=== PATIENT | male | born 1960 | race Caucasian/White ===

== ENCOUNTER → 2023-10-07 23:00 | Outpatient (CLI) | payer BC, SELFPAY ==
[2023-10-07 19:46] LABS: Thyroid Stimulating Hormone 1.32 uIU/mL (0.465-4.68)
== END ==
PROVIDERS: PCP Internal Medicine; Visit Provider Internal Medicine
DX: E78.5 Hyperlipidemia, unspecified (principal); I10 Essential (primary) hypertension
CPT/HCPCS: 84443

== ENCOUNTER 2024-02-02 19:05 | Outpatient (CLI) | payer BC, SELFPAY ==
[2024-02-02 18:20] LABS: Basophils # 0.2 K/mm3 (0-0.2); Basophils % 1.7 % (0.1-2.0); Eosinophils # 0.2 K/mm3 (0.0-0.4); Eosinophils % 2.6 % (0.1-12.0); Hematocrit 47.1 % (42.0-52.0); Hemoglobin 14.7 g/dL (14.1-18.0); Lymphocytes # 2.6 K/mm3 (0.7-4.5); Lymphocytes % 29.3 % (10-50); Mean Corpuscular HGB Conc 31.1 g/dL (31.8-35.4); Mean Corpuscular Hemoglobin 29.7 pg (27.0-31.2); Mean Corpuscular Volume 95.4 fl (80-94); Mean Platelet Volume 10.7 fl (7.4-10.4); Monocytes # 0.6 K/mm3 (0.1-1.0); Monocytes % 6.6 % (1.7-9.3); Neutrophils # 5.3 K/mm3 (1.8-7.8); Neutrophils % 59.9 % (37.0-80.0); Platelet Count 242 K/mm3 (142-424); Red Blood Count 4.94 M/mm3 (4.60-6.20); Red Cell Distribution Width 13.9 % (11.5-17.5); White Blood Count 8.8 K/mm3 (4.8-10.8)
[2024-02-02 18:34] LABS: Alanine Aminotransferase 54 U/L (12-78); Albumin Level 4.3 g/dl (3.5-5.0); Albumin/Globulin Ratio 1.7 (1.1-1.8); Alkaline Phosphatase 101 U/L (38-126); Anion Gap 12.6 mEq/L (5-15); Aspartate Amino Transferase 48 U/L (17-59); Bilirubin,Total 1.7 mg/dl (0.2-1.3); Blood Urea Nitrogen 22 mg/dl (9-20); Calcium 9.3 mg/dl (8.4-10.2); Carbon Dioxide 26 mmol/L (22.0-30.0); Chloride 105 mmol/L (98-107); Chol/HDL Ratio 5.1 (1-3.5); Cholesterol 169 mg/dl (140-200); Estimated Glomerular Filt Rate 52 ml/min (>60); GFR (African American) 62 ML/MIN (>60); Globulin 2.5 g/dL (1.3-3.2); Glucose 103 mg/dl (74-100); HDL Cholesterol 33 mg/dl (40-60); Potassium 4.6 mmoL/L (3.5-5.1); Sodium 139 mmol/L (136-145); Total Protein,Serum 6.8 g/dl (6.3-8.2); Triglycerides 96 mg/dl (30-150); VLDL Cholesterol 19 mg/dL (0-40)
[2024-02-02 18:45] LABS: Direct LDL Cholesterol 109.11 mg/dL (100-129)
[2024-02-02 19:03] LABS: Hemoglobin A1C 5.5 % (4.0-6.0)
[2024-02-02 19:19] LABS: 25-OH Vitamin D, Total 37.8 ng/mL (30-100)
[2024-02-02 19:49] LABS: NT Pro Brain Natriuretic Pep. 3560 pg/mL (0-125)
== END 2024-02-02 23:59 ==
LOC: LAB.DROPOF 19:08
PROVIDERS: PCP Student in an Organized Health Care Education/Training Program; Visit Provider Student in an Organized Health Care Education/Training Program
DX: R60.0 Localized edema (principal); I10 Essential (primary) hypertension; R06.01 Orthopnea; E66.9 Obesity, unspecified; Z68.41 Body mass index [BMI] 40.0-44.9, adult; Z13.1 Encounter for screening for diabetes mellitus; Z83.3 Family history of diabetes mellitus; Z13.21 Encounter for screening for nutritional disorder; Z12.5 Encounter for screening for malignant neoplasm of prostate
CPT/HCPCS: 80053; 80061; 82306; 83036; 83880; 85025; G0103

== ENCOUNTER 2024-02-03 14:41 | Outpatient (CLI) | payer BC, SELFPAY ==
--- NOTE | 2024-02-03 14:51 | XR_ITS ---
FINAL REPORT CLINICAL HISTORY: dyspnea, cough, edema, chest fullness pt just started new blood pressure meds FINDINGS: Two views of the chest were obtained. The heart size and pulmonary vascularity are within normal limits. The mediastinum is normal. No acute pulmonary abnormality is identified. There is no pneumothorax. The bony thorax is intact. IMPRESSION: No active cardiopulmonary disease. Authenticated and ERN
== END 2024-02-03 23:59 ==
LOC: RAD 14:41
PROVIDERS: PCP Internal Medicine; Visit Provider Internal Medicine
DX: R07.89 Other chest pain (principal); R06.00 Dyspnea, unspecified; I10 Essential (primary) hypertension; R05.9 Cough, unspecified; E66.9 Obesity, unspecified; Z68.38 Body mass index [BMI] 38.0-38.9, adult
CPT/HCPCS: 71046

== ENCOUNTER 2024-02-11 10:28 | Outpatient (CLI) | payer BC, SELFPAY ==
[2024-02-11 19:02] LABS: Chol/HDL Ratio 6.8 (1-3.5); Cholesterol 218 mg/dl (140-200); HDL Cholesterol 32 mg/dl (40-60); Triglycerides 102 mg/dl (30-150); VLDL Cholesterol 20 mg/dL (0-40)
[2024-02-11 19:16] LABS: Direct LDL Cholesterol 145.83 mg/dL (100-129)
== END 2024-02-11 23:59 ==
LOC: LAB.DROPOF 02-12 10:29
PROVIDERS: PCP Internal Medicine; Visit Provider Internal Medicine
DX: E78.5 Hyperlipidemia, unspecified (principal)
CPT/HCPCS: 80061

== ENCOUNTER 2024-02-19 06:51 | Outpatient (CLI) | payer BC, SELFPAY ==
--- NOTE | 2024-02-19 06:57 | CT_ITS ---
APPROVED REPORT Bookkeeping Assistant: CLINICAL INDICATION Chest Pain TECHNIQUE Image Acquisition: A 128 slice MDCT scanner (Neohapsisa View) was used for data acquisition. A noncontrast coronary calcium scan was performed. A CT attenuation threshold of 130 Hounsfield units (HU) was used for the detection of calcium in contiguous voxels of 1 sq mm in area to be counted as individual lesions. Bolus tracking in the ascending aorta with a threshold of 180 HU was performed. Immediately afterwards, ECG synchronized cardiac CT was then performed from the cardiac base to apex using retrospective gating with ECG tube current modulation. A total of 85 mL of Isovue 370 mg/mL contrast medium was administered at 5 mL/sec followed by a saline flush using a biphasic injection protocol. A tube voltage of 120 KVp was used. The patient received the following medications prior to the cardiac CT. 150 mg of oral metoprolol 10 mg of intravenous metoprolol 15 mg of oral ivabradine 0.8 mg of sublingual nitroglycerin The average heart rate at the time of acquisition was 59 bpm and regular. Image Reconstruction Transaxial images were reconstructed at 0.67 mm slide thickness. Data was reviewed interactively on an advanced workstation capable of 2 and 3-dimensional displays in all conventional reconstruction formats, including multiplanar reformations, maximum intensity projections, curved multiplanar reformations, and volume rendered reconstructions. When applicable, selected routine images describing the relevant coronary anatomy and pathology were saved and sent to PACS. Complications None Technical Quality Overall image quality was good. Coronary artery opacification was adequate. Total DLP (Dose-Length Product) is 1490.8 mGy-cm. The reported value represents the total of one or more individual components during the CT acquisition of this date and at this time, and as such, the same value may appear in more than one CT report depending on the interpreting/reporting physicians. COMPARISON None FINDINGS CT Coronary Calcium Scoring LMA (Left Main Artery) = 196 LAD (Left Anterior Descending) = 181 LCX (Left Coronary Circumflex) = 269 RCA (Right Coronary Artery) = 232 Total Calcium Score = 878 using the AJ-130 method. The observed calcium score of 878 is at 95th percentile for subjects of the same age, sex, and race/ethnicity. The interpretation of the calcium heart score is based on the following continuum*: 0 = no calcified plaque detected (risk of coronary artery disease is very low ??? less than 5%) 1-10 = calcium detected in extremely minimal levels (risk of coronary diseases is still low ??? less than 10%) 11-100 = mild levels of plaque detected with certainty (mild or minimal narrowing of heart arteries is likely) 101-400 = definite,at least moderate levels of plaque detected (relatively high risk of a heart attack within 3-5 years) >401-999 = extensive levels of plaque detected (high risk of heart attack, high levels of vascular disease are present, high likelihood of at least one significant coronary narrowing) *The calcium heart score quantifies the burden of coronary calcification/plaque in the coronary arteries. The calcium heart score is not able to evaluate the presence or burden of non-calcified (i.e. soft) plaque. There is no identifiable calcification in the aortic valve, mitral annulus or mitral valve, pericardium, or myocardium. Coronary CT Angiography The coronary arterial system is right dominant. Quantitative Stenosis Grading: Left Main (LM): The left main originates normally from the left sinus of Valsalva. The LM bifurcates into the left anterior descending artery and left circumflex artery. There is calcified plaque in the distal LM with approximately 25-49% luminal stenosis. Left Anterior Descending (LAD) and Diagonal Branches: The LAD gives off 2 diagonal branches. There is mixed calcified/non-calcified plaque in the proximal and mid-LAD segments, with up to 50-70% luminal stenosis. There is no evidence of LAD-myocardial bridge. Left Circumflex (LCX) and Obtuse Marginals (OM): The LCX gives off 2 Obtuse Marginal (OM) branches. There is mixed calcified/non-calcified plaque in the proximal LCX, with up to 50-70% luminal stenosis. Right Coronary Artery (RCA): The RCA originates normally from the right sinus of Valsalva. The RCA gives off a posterior descending artery (PDA) and posterolateral (PL) branches. There is mixed calcified/non-calcified plaque in the proximal RCA, with up to 70-90% luminal stenosis. Non-Coronary Cardiac Findings: Analysis of the left ventricular (LV) structure and function was performed after 3-D reconstruction of the LV from axial images, with user-corrected automatic contouring for assessment of LV volumes and user-defined reconstruction from oblique planes for measurement of 3-D cardiac structure and function. -The left ventricle systolic function is severely reduced (LVEF 18%). There is near-akinesis of the septal and anteroseptal LV aguilar. -There is no left atrial appendage filling defect. Two right pulmonary veins and two left pulmonary veins drain normally into the left atrium. -No pericardial thickening or calcification. -Central and branch pulmonary arteries in the [id number] are unremarkable. -Thoracic aorta within the visualized thoracic aortic-branches in the [id number] is unremarkable. Extracardiac Structures No significant extra-cardiac findings. Note, however, that this study is focused on the cardiac findings. IMPRESSION -There is severe coronary calcification with an Agatston score = 878 using the AJ-130 method. -The observed calcium score of 878 is at 95th percentile for subjects of the same age, sex, and race/ethnicity. -Multivessel atherosclerotic coronary disease with possible evidence of multivessel significant flow-limiting disease. -CAD-RADS 4B. Management recommendations per ACC/AHA guidelines*, as clinically appropriate. -The left ventricle systolic function is severely reduced (LVEF 18%). There is near-akinesis of the septal and anteroseptal LV aguilar. *Recommendations: CAD RADS 0: Reassurance. Consider non-atherosclerotic causes of chest pain. CAD RADS 1: Consider non-atherosclerotic causes of chest pain. Consider preventive therapy and risk factor modification. CAD RADS 2: Consider non-atherosclerotic causes of chest pain. Consider preventive therapy and risk factor modification, particularly for patients with nonobstructive plaque in multiple segments. CAD RADS 3: Consider further functional testing. Consider symptom-guided anti-ischemic and preventive pharmacotherapy as well as risk factor modification per published guideline statements. CAD RADS 4A: Consider further functional testing or invasive coronary angiography with revascularization per published guideline statements. Consider symptom-guided anti-ischemic and preventive pharmacotherapy as well as risk factor modification per published guideline statements. CAD RADS 4B: Invasive coronary angiography recommended with revascularization per published guideline statements. Consider symptom-guided anti-ischemic and preventive pharmacotherapy as well as risk factor modification per published guideline statements. CAD RADS 5: Consider invasive angiography and/or viability assessment with revascularization per published guideline statements. Consider symptom-guided anti-ischemic and preventive pharmacotherapy as well as risk factor modification per published guideline statements. CRITICAL RESULT None COMMUNICATION Per this written report The coronary and cardiac findings of this CCTA were reviewed, reported, and signed by Ayaz Palacios MD (Pot Holder Binder) Conclusion Electronically signed by : Angeal Palacios MD 02/24/2024 12:58:10
[2024-02-19 07:23] VITALS: BMI 37.9
[2024-02-19] MEDS: METOPROLOL TARTRATE 50MG TABLET PO ×3 (07:34→08:30)
[2024-02-19] MEDS: IVABRADINE HCL 7.5MG TABLET PO (07:35)
--- NOTE | 2024-02-19 08:02 | CA_ITS ---
APPROVED REPORT EXAM: Comprehensive 2D, Doppler, and color-flow Echocardiogram Marine Extension Agent: Maria G Rhoades RDCS Ht: 5 ft 7 in Wt: 258lbs BSA: 2.25 BP: 155/71 mmHg Indications: SOA,HTN,EDEMA,SOA,OBESITY M-Mode Dimensions RVDd 2.91 cm (0.9-2.6) LA Diam 3.81 cm (1.9-4.0) LVDd 6.39 cm (3.5-5.7) LVDs 5.72 cm (3.5-5.7) IVSd 0.80 cm (0.6-1.1) PWd 0.89 cm (0.6-1.1) EF (Teich) 22.40% FS 10.50% EDV (Teich) 207.80 mL TAPSE 1.48 (<1.7) ESV (Teich) 161.30 mL LV Diastology E Decel Time 113 (160-240 msec) E/A Ratio 0.6 Mitral Valve MV E Max Jacob. 42.0 (40-130 cm/s) MV A Velocity 73.0 (40-130 cm/s) E/A Ratio 0.58 MV PHT 33.0 ms Tricuspid Valve TR P. Velocity 259.00 cm/s RAP Estimate 10.00 mmHg RVSP 36.90 mmHg Left Ventricle The left ventricle is mildly dilated. Left ventricular systolic function is severely decreased. There is normal left ventricular wall thickness. There is severe global hypokinesis present. Grade 2 diastolic dysfunction is present. LVEF is 20%. Right Ventricle The right ventricle is normal size. Right ventricle is mildly hypokinetic. Atria The left atrium is moderately dilated. The right atrium is mildly dilated. There is no Doppler evidence of interatrial shunt. Aortic Valve The aortic valve opens well. There is no aortic valvular stenosis. No aortic regurgitation is present. Mitral Valve The mitral valve is normal in structure. No evidence of mitral valve stenosis. Mild mitral regurgitation. Tricuspid Valve The tricuspid valve leaflets are thin and pliable. Trace tricuspid regurgitation. RVSP is 20-25 mmHg. Pulmonic Valve The pulmonary valve is normal in structure. Trace pulmonic regurgitation. Great Vessels The aortic root is normal in size. The ascending aorta is mildly dilated, measuring 4.0 cm in diameter. IVC is normal in size and collapses >50% with inspiration. Pericardium There is no pericardial effusion. Other Information Study Quality: Fair Conclusion Mildly dilated LV with severe reduction in LV systolic function (LVEF 20%). Normal RV size with mild reduction in RV function. Biatrial dilation. Mild MR. Mildly dilated ascending aorta (4.0 cm in diameter). Electronically signed by : Angela Palacios MD 02/20/2024 02:25:19
[2024-02-19] MEDS: METOPROLOL TARTRATE 25MG TABLET 25 MG (08:30)
[2024-02-19 09:15] VITALS: BP 133/105; PULSE 75; RESP 14; O2SAT 99
[2024-02-19] MEDS: METOPROLOL TARTRATE 5MG/5ML VIAL 5 MG IV ×2 (09:18→09:25)
[2024-02-19 09:20] VITALS: BP 126/89; PULSE 74; RESP 16; O2SAT 98
[2024-02-19 09:25] VITALS: BP 127/86; PULSE 62; RESP 16; O2SAT 95
[2024-02-19] MEDS: 0.9 % SODIUM CHLORIDE 50 ML VIAL IV (09:29)
[2024-02-19] MEDS: SODIUM CHLORIDE 0.9% 10ML SYR (RAD ONLY) 10 ML IV (09:29)
[2024-02-19] MEDS: IOPAMIDOL-370 (76%);100ML BOTTLE 85 ML IV (09:29)
[2024-02-19 09:30] VITALS: BP 126/60; PULSE 64; RESP 18; O2SAT 96
[2024-02-19 09:34] VITALS: BP 96/60; PULSE 63; RESP 16; O2SAT 96
[2024-02-19] MEDS: NITROGLYCERIN 0.4MG SL TABLET SL (09:42)
[2024-02-19 09:49] VITALS: BP 108/71; PULSE 62; RESP 16; O2SAT 97
== END 2024-02-19 09:50 | disposition home or self-care (01) ==
PROVIDERS: PCP Internal Medicine; Visit Provider Nurse Practitioner
DX: R06.00 Dyspnea, unspecified (principal); R07.89 Other chest pain; I10 Essential (primary) hypertension; R05.9 Cough, unspecified; E66.9 Obesity, unspecified; Z68.38 Body mass index [BMI] 38.0-38.9, adult
CPT/HCPCS: 75571; 75574; 93306; Q9967

== ENCOUNTER 2024-03-01 10:37 | Day surgery (SDC) | payer BC, SELFPAY ==
[2024-03-01] VITALS (10 sets, daily range): BP systolic 106–139; BP diastolic 68–82; PULSE 54–90; RESP 16–20; O2SAT 95–99; BMI 40.4
--- NOTE | 2024-03-01 07:07 | IR_ITS ---
APPROVED REPORT Patient Location: Outpatient PROCEDURES Left heart catheterization Left ventriculogram Selective coronary angiogram INDICATION Abnormal CCTA, Cardiomyopathy ejection fraction 20%, Informed consent was obtained prior to the procedure. COMPLICATIONS NONE Estimated Blood Loss: LESS THAN 10 ML TECHNIQUE One percent lidocaine used to anesthetize the right anterior aspect of the wrist. The right radial artery was accessed via the Seldinger technique. A 6 Congolese sheath was placed in the right radial artery. 2.5 mg of Verapamil, 800 mcg of nitroglycerin, 1mg Lidocaine and 5000 U Heparin were given through the arterial sheath. The papa catheter was also used to perform left heart catheterization, left ventriculogram and selective coronary angiogram. At the end of the procedure the sheath was removed good hemostasis was achieved using Traclet band, patient was transferred to the postop holding area in stable condition. ANGIOGRAPHIC RESULTS The left main artery Has distal eccentric 20 to 30% stenosis The left anterior descending artery Is calcified throughout his proximal and mid segment has multiple 40 and 50% eccentric stenoses with an additional mid vessel diffuse 40% stenoses. Distally there are additional 30% stenoses. First diagonal artery has an ostial 40 to 50% stenosis The circumflex artery Is a dominant vessel and has proximal 30% stenosis with an additional 40% stenosis with additional 30% throughout the obtuse marginal arteries. There is a small ramus intermedius which has proximal 90% stenosis The right coronary artery Is nondominant and has an 9 dampening 30% stenosis followed by proximal 60% stenosis with additional mid vessel 50 and 60% stenoses. Distally there is focal 90% stenosis and 2 branches with each branch being 1 mm and 1.5 mm in diameter respectively The SALINAS ventriculogram reveals Was not performed The left ventricular end-diastolic pressure Not measured IMPRESSION Coronary artery disease as described above which does not explain the degree of LV dysfunction suggesting nonischemic versus multifactorial etiologies PLAN 1. Recommend cardiac MRI 2. Standard therapy for systolic heart failure 3. Consider systemic disease accounting for both LV dysfunction as well as nephropathy 4. Recommend placement of LifeVest today or soon as possible 5. LDL less than 55 to be achieved with high intensity statin Electronically signed by : Hosea Levine MD 03/01/2024 13:20:57
[2024-03-01 10:55] LABS: Basophils # 0.2 K/mm3 (0-0.2); Basophils % 1.5 % (0.1-2.0); Eosinophils # 0.4 K/mm3 (0.0-0.4); Eosinophils % 3.6 % (0.1-12.0); Hematocrit 47.9 % (42.0-52.0); Hemoglobin 15.8 g/dL (14.1-18.0); Lymphocytes # 5.3 K/mm3 (0.7-4.5); Lymphocytes % 50.5 % (10-50); Mean Corpuscular Hemoglobin 28.8 pg (27.0-31.2); Mean Corpuscular Volume 87.1 fl (80-94); Mean Platelet Volume 8.8 fl (7.4-10.4); Monocytes # 0.6 K/mm3 (0.1-1.0); Monocytes % 5.5 % (1.7-9.3); Neutrophils # 4.1 K/mm3 (1.8-7.8); Platelet Count 240 K/mm3 (142-424); Red Cell Distribution Width 13.9 % (11.5-17.5); White Blood Count 10.4 K/mm3 (4.8-10.8)
[2024-03-01 11:03] LABS: MANUAL DIFFERENTIAL MANUAL DIFFERENTIAL (MANUAL DIFF)
[2024-03-01 11:09] LABS: Anion Gap 9.4 mEq/L (5-15); Blood Urea Nitrogen 33 mg/dl (9-20); Calcium 10.2 mg/dl (8.4-10.2); Carbon Dioxide 29 mmol/L (22.0-30.0); Chloride 104 mmol/L (98-107); Creatinine Clearance Estimated 86 mL/min (50-200); Estimated Glomerular Filt Rate 48 ml/min (>60); GFR (African American) 58 ML/MIN (>60); Glucose 91 mg/dl (74-100); Potassium 4.4 mmoL/L (3.5-5.1); Sodium 138 mmol/L (136-145)
[2024-03-01] MEDS: VERAPAMIL 2.5MG/ML 2ML VIAL 2.5 MG IV (12:10)
[2024-03-01] MEDS: diphenhydrAMINE 50MG/ML VIAL 50 MG IV (12:10)
[2024-03-01] MEDS: 0.9 % SODIUM CHLORIDE 500 ML 25 ML IV (12:11)
[2024-03-01] MEDS: NITROGLYCERIN 800MCG/8ML SYR (CATH LAB) 800 MCG IA (12:11)
[2024-03-01] MEDS: HEPARIN 1,000 UNITS/500ML NS (CATH LAB) 3000 UNIT IV (12:11)
[2024-03-01] MEDS: LIDOCAINE 1% 10ML MDV 20 ML IJ (12:11)
[2024-03-01] MEDS: HEPARIN 1,000 UNITS/ML 10ML VIAL (CATH LAB) 10000 UNIT IV (12:11)
[2024-03-01] MEDS: MIDAZOLAM HCL 1MG/1ML 5ML VIAL 1 MG IV (12:12)
[2024-03-01] MEDS: FENTANYL 100MCG/2ML VIAL 50 MCG IV (12:13)
[2024-03-01 12:15] LABS: Eosinophils % 3 % (0-3); Lymphocytes % 51 % (10-50); Monocytes % 4 % (2-9); Neutrophils % 42 % (42-76); Platelet Estimate Normal; RBC Morphology Normal; Total Cells Counted 100
[2024-03-01] MEDS: IOPAMIDOL-370 (76%);100ML BOTTLE 50 ML IV (14:39)
== END 2024-03-01 15:14 | disposition home or self-care (01) ==
LOC: CATHLAB 10:38
PROVIDERS: PCP Internal Medicine; Visit Provider Internal Medicine
DX: I42.9 Cardiomyopathy, unspecified (principal); I11.0 Hypertensive heart disease with heart failure; I50.21 Acute systolic (congestive) heart failure; E66.9 Obesity, unspecified; Z68.41 Body mass index [BMI] 40.0-44.9, adult; R05.9 Cough, unspecified
CPT/HCPCS: 36415; 80048; 85007; 85025; 93458; 99152; C1725; C1769; J1644; Q9967

== ENCOUNTER 2024-04-05 09:13 | Outpatient (CLI) | payer BC, SELFPAY ==
[2024-04-05 09:37] LABS: Blood Urea Nitrogen 24 mg/dl (9-20); Estimated Glomerular Filt Rate 44 ml/min (>60); GFR (African American) 53 ML/MIN (>60)
== END 2024-04-05 23:59 | disposition home or self-care (01) ==
LOC: LAB 09:13
PROVIDERS: Physician Assistant; PCP Internal Medicine; Visit Provider Nurse Practitioner Family
DX: R05.3 Chronic cough (principal); I11.0 Hypertensive heart disease with heart failure; I50.23 Acute on chronic systolic (congestive) heart failure
CPT/HCPCS: 36415; 82565; 84520

== ENCOUNTER 2024-04-07 09:27 | Outpatient (CLI) | payer BC, SELFPAY ==
--- NOTE | 2024-04-07 09:30 | MR_ITS ---
APPROVED REPORT Bottle Sorter: CLINICAL INDICATION LVEF=20% on TTE, evaluation for non-ischemic cardiomyopathy TECHNIQUE Image Acquisition: Cardiac magnetic resonance (CMR) was performed on Siemens Espree MRI 1.5T scanner. Software platform sequences were performed using the Siemens Smaatoo MR B19 platform. A set of three-plane, low-resolution, large [id number] localizers were initially acquired. Then axial, coronal, sagittal TrueFISP, as well as axial HASTE images, were obtained. These were followed by gated TrueFISP breathold cinematic sequences obtained in the short axis with 8 mm slices and 2 mm gaps, 2-chamber (vertical long axis), 3-chamber, 4-chamber (horizontal long axis). A bolus of contrast was injected intravenously with first-pass sequences obtained in the short axis and four-chamber planes. After approximately 10 minutes, a TI support services coordinator sequence was performed to determine the optimal TI time. Using the optimized TI time, delayed contrast enhancement segmented inversion???recovery TurboFLASH sequences were obtained in the short axis, 2-chamber, 3-chamber, and 4-chamber projections. 2D-velocity phase mapping was performed. Functional parameters were calculated by offline analysis on an independent workstation ([employer], CVISurph[employer]). Contrast: ProHance??? (Gadoteridol) FINDINGS MORPHOLOGY AND FUNCTION Left ventricle: The left ventricle is normal in size. The indexed left ventricular end-diastolic volume (LVEDVi) is 57 ml/m2 (reference range 57-105 ml/m2 in males, 56-96 ml/m2 in females). There is severe reduction in left ventricular systolic function is present. There is increase in left ventricular wall thickness (maximum 12 mm). There is severe global hypokinesis present. The basal inferolateral wal is nearly akinetic. LVEF is calculated at 24.3% (reference range 57-77%). Right ventricle: The right ventricle is normal in size. The indexed right ventricular end-diastolic volume (RVEDVi) is 56 ml/m2 (reference range 61-121 ml/m2 in males, 48-112 ml/m2 in females). There is severe reduction in right ventricular systolic function. RVEF is calculated at 28.4% (reference range 52-72% in males, 51-71% in females). Atria: The left atrium is normal in size. The maximum indexed left atrial volume is 19 ml/m2 (reference range 26-52 ml/m2 in males, 27-53 ml/m2 in females). The right atrium is normal in size. The maximum indexed right atrial volume is 18 ml/m2 (reference range 18-90 ml/m2). Aorta: The diameter of the aortic annulus is normal, measuring 26 mm (coronal view reference range 21-30 mm in males, 19-27 mm in females). The diameter of the aortic sinus is normal, measuring 37 mm (coronal view reference range 25-42 mm in males, 24-36 mm in females). The diameter of the sinotubular junction is mildly increased, measuring 34 mm (coronal view reference range 18-32 mm in males, 18-28 mm in females). The diameter of the ascending thoracic aorta is mildly increased, measuring 39 mm. The diameter of the descending thoracic aorta is normal. Main pulmonary artery: The main pulmonary artery diameter is normal. Pericardium: The pericardial thickness is normal. The pericardial thickness measures 2.7 cm (normal < 4.0 cm). There is no pericardial effusion. VALVES The valvular morphologies in the visualized sequences appear normal. There is no significant valvular stenosis or regurgitation of the mitral, aortic, tricuspid, or pulmonic valve noted visually. Systolic anterior motion of the mitral valve is not visualized. Ratio of pulmonary to systemic flow, Qp:Qs ratio = 1.1 (normal < or = 1.2, hemodynamically significant shunt > 1.5), demonstrating no evidence of hemodynamically significant shunt. TISSUE CHARACTERIZATION Resting Perfusion: Normal myocardial blood flow at rest. No evidence of resting hypoperfusion. Myocardial Fibrosis and/or edema: Abnormal mal gadolinium kinetics are present. There is subendocardial late gadolinium enhancement (LGE) noted in the basal to mid lateral and inferolateral LV aguilar. This pattern of LGE is most likely consistent with prior infarct in the LCX territory and occupying approximately 25% of the total myocardial thickness (suggestive of viable tissue). There is also mid-myocardial LGE noted in the basal septal LV wall. This pattern is most consistent with idiopathic non-ischemic cardiomyopathy. STIR imaging demonstrates presence of diffuse mild myocardial wall edema. OTHER No other significant findings are noted. However, this exam is focused on the cardiac structure and function. IMPRESSION Normal LV size with severe reduction in LV systolic function. LVEDVi= 57 ml/m2 and LVEF= 24.3%. Normal RV size with severe reduction in RV systolic function. RVEDVi= 56 ml/m2 and RVEF= 2%. No atrial enlargement. Subendocardial LGE in the basal to mid lateral and inferolateral LV aguilar. This pattern of LGE is most likely consistent with prior infarct in the LCX territory and occupying approximately 25% of the total myocardial thickness (suggestive of viable tissue). There is also mid-myocardial LGE noted in the basal septal LV wall. This pattern is most consistent in this setting with idiopathic non-ischemic cardiomyopathy. STIR imaging demonstrates presence of diffuse mild myocardial wall edema. Perfusion analysis demonstrates normal blood flow at rest with no evidence of resting hypoperfusion. Ratio of pulmonary to systemic flow, Qp:Qs ratio = 1.1 (normal < or = 1.2, hemodynamically significant shunt > 1.5), demonstrating no evidence of hemodynamically significant shunt. The aortic sinuotubular junction is mildly dilated, measuring 34 mm. The ascending aorta is mildly dilated, measuring 39 mm. 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 COMPARISON None CRITICAL RESULT None COMMUNICATION Per this written report The findings of this cardiac MR were reviewed, reported, and signed by Ayaz Palacios MD (Clinical Secretary). Conclusion Electronically signed by : Angela Palacios MD 04/12/2024 00:16:13
[2024-04-07] MEDS: SODIUM CHLORIDE 0.9% 10ML SYR (RAD ONLY) 10 ML IV (10:59)
[2024-04-07] MEDS: GADOTERIDOL INJ 20ML SYRINGE 20 ML IV (11:00)
[2024-04-07] MEDS: SODIUM CHLORIDE 0.9% 50ML BAG 25 ML IV (11:00)
[2024-04-07] MEDS: GADOTERIDOL INJ 10ML SYRINGE 3 ML IV (11:00)
== END 2024-04-07 23:59 | disposition home or self-care (01) ==
LOC: RAD 09:27
PROVIDERS: PCP Internal Medicine; Visit Provider Physician Assistant
DX: I50.21 Acute systolic (congestive) heart failure (principal)
CPT/HCPCS: 75561; A9576

== ENCOUNTER 2024-05-20 07:40 | Outpatient (CLI) | payer BC, SELFPAY ==
--- NOTE | 2024-05-20 | CA_ITS ---
APPROVED REPORT EXAM: Limited 2D Echocardiogram Dowel Machine Operator: Susanna Lewis RT(R) Ht: 5 ft 7 in Wt: 238lbs BSA: 2.18 BP: 108/73 mmHg Indications: CAD, HTN, CHF, CM, wearing lifevest, 20% Ef echo 02/19/24. Limited echo to reassess EF 2D Dimensions EF AP4 39.90 % GL Strain -14.6 % M-Mode Dimensions RVDd 4.06 cm (0.9-2.6) LVDd 4.55 cm (3.5-5.7) LVDs 4.06 cm (3.5-5.7) IVSd 0.98 cm (0.6-1.1) PWd 0.94 cm (0.6-1.1) EF (Teich) 23.60% FS 10.80% EDV (Teich) 94.90 mL ESV (Teich) 72.50 mL LV Diastology E Decel Time 150 (160-240 msec) E/A Ratio 0.5 MED E' 4.1 (>= 7 cm/sec) E'/MED E' Ratio 10.63 (<= 14) LAT E' 4.6 (>= 10 cm/sec) E/LAT E' Ratio 9.48 (<= 14) Mitral Valve MV E Max Jacob. 44.0 (40-130 cm/s) MV A Velocity 94.0 (40-130 cm/s) E/A Ratio 0.46 MV Decel. Time 150 (160-240 ms) Other Information Study Quality: Fair Conclusion This is a limited TTE to evaluate for LVEF. Limited windows were obtained. The left ventricle is normal in size. There is increase in LV wall thickness. The septum is asynchronous. There is near akinesis of the basal inferolateral LV wall. LVEF is 25-30% Compared to prior study from 02/19/2024, the LVEF is slightly improved, but remains severely reduced. Electronically signed by : Angela Palacios MD 05/21/2024 23:27:15
== END 2024-05-20 23:59 | disposition home or self-care (01) ==
LOC: RT 07:40
PROVIDERS: PCP Internal Medicine; Visit Provider Physician Assistant
DX: I25.10 Atherosclerotic heart disease of native coronary artery without angina pectoris (principal); R07.9 Chest pain, unspecified
CPT/HCPCS: 93308

== ENCOUNTER 2024-06-10 09:41 | Day surgery (SDC) | payer BC, SELFPAY ==
[2024-06-10] VITALS (7 sets, daily range): BP systolic 94–122; BP diastolic 68–82; PULSE 60–79; RESP 15–19; O2SAT 96–100; BMI 36.9
[2024-06-10 10:04] LABS: Basophils # 0.2 K/mm3 (0-0.2); Basophils % 1.7 % (0.1-2.0); Eosinophils # 0.8 K/mm3 (0.0-0.4); Eosinophils % 6.7 % (0.1-12.0); Hematocrit 44.6 % (42.0-52.0); Hemoglobin 14.8 g/dL (14.1-18.0); Lymphocytes # 5.9 K/mm3 (0.7-4.5); Mean Corpuscular HGB Conc 33.2 g/dL (31.8-35.4); Mean Corpuscular Hemoglobin 30.6 pg (27.0-31.2); Mean Corpuscular Volume 92.3 fl (80-94); Mean Platelet Volume 7.8 fl (7.4-10.4); Monocytes # 0.6 K/mm3 (0.1-1.0); Monocytes % 5.2 % (1.7-9.3); Neutrophils # 4.5 K/mm3 (1.8-7.8); Neutrophils % 37.5 % (37.0-80.0); Platelet Count 272 K/mm3 (142-424); Red Blood Count 4.83 M/mm3 (4.60-6.20); Red Cell Distribution Width 15.7 % (11.5-17.5)
[2024-06-10 10:14] LABS: Chloride 107 mmol/L (98-107); Sodium 138 mmol/L (136-145)
[2024-06-10 10:15] LABS: Potassium 4.2 mmoL/L (3.5-5.1)
[2024-06-10 10:18] LABS: Anion Gap 12.2 mEq/L (5-15); Blood Urea Nitrogen 23 mg/dl (9-20); Carbon Dioxide 23 mmol/L (22.0-30.0); Creatinine Clearance Estimated 78 mL/min (50-200); Estimated Glomerular Filt Rate 48 ml/min (>60); GFR (African American) 58 ML/MIN (>60); Glucose 90 mg/dl (74-100)
--- NOTE | 2024-06-10 11:20 | EXP.ANES.CKL ---
[facility] Disclaimer: The information contained in this section may have been updated after the patient was seen, as this information can be updated by other users. 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 coma Obesity (BMI 30-39.9) HTN (hypertension) Surgical History S/P cardiac cath History of bilateral knee replacement Family History Family/Other Hypertension Hyperlipidemia Coronary artery disease Diabetes Social History Smoking Status: Never smoker alcohol intake: never substance use type: denies use current occupational status: employed Travel in the last 8 weeks: Inside the [place] housing: house lives independently: Yes marital status: [facility] Anesthesia Checklist Patient Identification Patient Identification: Arm Band and Verbal (Name & ) Structural Data Admitted From: Home Planned Operative Procedure/s: AICD placement Consent for Planned Operative Procedure(s) Verified: Yes Verified Documents: Surgical Consent and History and Physical NPO Status Verified Time NPO: 00:00 Chart Verification Results Verified: CBC and BMP Additional verifications Anesthesia Reactions: No Hx Blood Transfusions: No Blood Transfusion Reaction: No Airway Assessment Mallampati Score:: Class II C-Spine Mobility Assessed: Yes TMJ Mobility Assessed: Yes Dentition: Good Dentition Neurological Assessment Level of Consciousness: Awake Hx Seizures: No Numbness or tingling in extremities: No Anesthesia Plan Anesthesia Risk discussed: Yes Anesthesia Plan: Verified ASA Class: III Anesthesia Type: MAC
[2024-06-10] MEDS: CEFAZOLIN SODIUM 1 GM in 0.9 % SODIUM CHLORIDE 50 ML IV (12:15)
[2024-06-10] MEDS: LIDOCAINE 1% W/EPI 1:100,000 20ML VIAL 20 ML SQ (12:19)
[2024-06-10] MEDS: CEFAZOLIN 1GM VIAL 1 GM TP (12:23)
[2024-06-10] MEDS: diphenhydrAMINE 50MG/ML VIAL 50 MG IV (12:24)
--- NOTE | 2024-06-10 12:28 | SUR.PREOP ---
Updated pt family
--- NOTE | 2024-06-10 12:50 | XR_ITS ---
FINAL REPORT TECHNIQUE: Single view chest CLINICAL HISTORY: post AICD insertion FINDINGS: A single view of the chest was obtained. There is a left subclavian AICD in place. The heart and mediastinum are within normal limits. There is mild right base atelectasis. There is no pneumothorax. Osseous structures are unremarkable. IMPRESSION: Left-sided AICD without pneumothorax. Mild right base atelectasis. Reviewed, Interpreted and Dictated by Jorge Harmon III, MD Transcribed by Zahraa Romo Authenticated and . [facility]
--- NOTE | 2024-06-10 13:54 | SUR.PHASEII ---
Family at beside
== END 2024-06-10 14:43 | disposition home or self-care (01) ==
PROVIDERS: PCP Internal Medicine; Visit Provider Internal Medicine
PROC: 0JH608Z Insertion of Defibrillator Generator into Chest Subcutaneous Tissue and Fascia, Open Approach (ICD-10-PCS; CPT 33249; principal; 2024-06-10 11:00)
DX: I25.10 Atherosclerotic heart disease of native coronary artery without angina pectoris (principal); I42.8 Other cardiomyopathies; Z95.810 Presence of automatic (implantable) cardiac defibrillator; I50.23 Acute on chronic systolic (congestive) heart failure; Z45.02 Encounter for adjustment and management of automatic implantable cardiac defibrillator; I11.0 Hypertensive heart disease with heart failure; Z79.899 Other long term (current) drug therapy
CPT/HCPCS: 33249; 71045; 80048; 85025; C1721; C1895; C1898; J1200; J2704

== ENCOUNTER 2024-08-09 09:40 | Outpatient (CLI) | payer BC, SELFPAY ==
[2024-08-09 18:52] LABS: Alanine Aminotransferase 26 U/L (12-78); Albumin Level 4.3 g/dl (3.5-5.0); Albumin/Globulin Ratio 1.8 (1.1-1.8); Alkaline Phosphatase 78 U/L (38-126); Anion Gap 10.5 mEq/L (5-15); Aspartate Amino Transferase 28 U/L (17-59); Bilirubin,Total 0.8 mg/dl (0.2-1.3); Blood Urea Nitrogen 21 mg/dl (9-20); Calcium 9.5 mg/dl (8.4-10.2); Carbon Dioxide 25 mmol/L (22.0-30.0); Chloride 104 mmol/L (98-107); Estimated Glomerular Filt Rate 48 ml/min (>60); GFR (African American) 58 ML/MIN (>60); Globulin 2.4 g/dL (1.3-3.2); Glucose 92 mg/dl (74-100); Potassium 4.5 mmoL/L (3.5-5.1); Sodium 135 mmol/L (136-145); Total Protein,Serum 6.7 g/dl (6.3-8.2)
[2024-08-09 18:55] LABS: Creatinine,Urine Random 42 mg/dL (Not Estab.); Hemoglobin A1C 5.1 % (4.0-6.0); Microalbumin < 6.000 mg/L (0-16.7)
== END 2024-08-09 23:59 | disposition home or self-care (01) ==
LOC: LAB.DROPOF 08-10 10:14
PROVIDERS: PCP Internal Medicine; Visit Provider Internal Medicine
DX: E11.69 Type 2 diabetes mellitus with other specified complication (principal); E66.9 Obesity, unspecified; E78.2 Mixed hyperlipidemia; I10 Essential (primary) hypertension; Z68.38 Body mass index [BMI] 38.0-38.9, adult; Z79.84 Long term (current) use of oral hypoglycemic drugs
CPT/HCPCS: 80053; 82043; 82570; 83036

== ENCOUNTER 2024-09-20 10:03 | Outpatient (CLI) | payer BC, SELFPAY ==
[2024-09-20 10:47] LABS: Albumin Level 4.4 g/dl (3.5-5.0)
[2024-09-20 10:48] LABS: Chloride 105 mmol/L (98-107); Potassium 4.3 mmoL/L (3.5-5.1); Sodium 139 mmol/L (136-145)
[2024-09-20 10:50] LABS: Alanine Aminotransferase 22 U/L (12-78); Anion Gap 16.3 mEq/L (5-15); Aspartate Amino Transferase 29 U/L (17-59); Bilirubin,Indirect 1.1 mg/dL (0.0-0.9); Bilirubin,Total 1.1 mg/dl (0.2-1.3); Bilirubin,Unconjugated 1.1 mg/dL (0.0-1.1); Blood Urea Nitrogen 18 mg/dl (9-20); Carbon Dioxide 22 mmol/L (22.0-30.0); Estimated Glomerular Filt Rate 51 ml/min (>60); GFR (African American) 62 ML/MIN (>60)
[2024-09-20 10:51] LABS: Alkaline Phosphatase 95 U/L (38-126); Basophils # 0.1 K/mm3 (0-0.2); Basophils % 1.3 % (0.1-2.0); Calcium 9.2 mg/dl (8.4-10.2); Chol/HDL Ratio 2.9 (1-3.5); Cholesterol 107 mg/dl (140-200); Eosinophils # 0.3 K/mm3 (0.0-0.4); Eosinophils % 3.2 % (0.1-12.0); Glucose 99 mg/dl (74-100); HDL Cholesterol 37 mg/dl (40-60); Hematocrit 41.2 % (42.0-52.0); Hemoglobin 13.9 g/dL (14.1-18.0); Lymphocytes # 4.2 K/mm3 (0.7-4.5); Lymphocytes % 41.9 % (10-50); Mean Corpuscular HGB Conc 33.8 g/dL (31.8-35.4); Mean Corpuscular Hemoglobin 29.4 pg (27.0-31.2); Mean Corpuscular Volume 87.1 fl (80-94); Mean Platelet Volume 7.6 fl (7.4-10.4); Monocytes # 0.6 K/mm3 (0.1-1.0); Monocytes % 5.5 % (1.7-9.3); Neutrophils # 4.8 K/mm3 (1.8-7.8); Neutrophils % 48.1 % (37.0-80.0); Platelet Count 251 K/mm3 (142-424); Red Blood Count 4.73 M/mm3 (4.60-6.20); Red Cell Distribution Width 14.2 % (11.5-17.5); Total Protein,Serum 6.9 g/dl (6.3-8.2); Triglycerides 107 mg/dl (30-150); VLDL Cholesterol 21 mg/dL (0-40); White Blood Count 10.1 K/mm3 (4.8-10.8)
[2024-09-20 11:02] LABS: Direct LDL Cholesterol 52.73 mg/dL (100-129)
[2024-09-20 11:07] LABS: Free T4 (Free Thyroxine) 0.93 ng/dl (0.78-2.19)
== END 2024-09-20 23:59 | disposition home or self-care (01) ==
LOC: LAB 10:04
PROVIDERS: PCP Internal Medicine; Visit Provider Physician Assistant
DX: I25.10 Atherosclerotic heart disease of native coronary artery without angina pectoris (principal); E11.69 Type 2 diabetes mellitus with other specified complication; E66.9 Obesity, unspecified; E78.2 Mixed hyperlipidemia; I10 Essential (primary) hypertension; Z79.84 Long term (current) use of oral hypoglycemic drugs
CPT/HCPCS: 36415; 80048; 80061; 80076; 84439; 84443; 85025

== ENCOUNTER 2025-02-03 09:55 | Outpatient (CLI) | payer BC, SELFPAY ==
[2025-02-03 18:17] LABS: Alanine Aminotransferase 20 U/L (12-78); Albumin Level 4.6 g/dl (3.5-5.0); Albumin/Globulin Ratio 1.7 (1.1-1.8); Alkaline Phosphatase 83 U/L (38-126); Anion Gap 16.9 mEq/L (5-15); Aspartate Amino Transferase 27 U/L (17-59); Bilirubin,Total 1.4 mg/dl (0.2-1.3); Blood Urea Nitrogen 20 mg/dl (9-20); Calcium 10.1 mg/dl (8.4-10.2); Carbon Dioxide 25 mmol/L (22.0-30.0); Chloride 103 mmol/L (98-107); Chol/HDL Ratio 2.9 (1-3.5); Cholesterol 97 mg/dl (140-200); Estimated Glomerular Filt Rate 44 ml/min (>60); GFR (African American) 53 ML/MIN (>60); Globulin 2.7 g/dL (1.3-3.2); Glucose 83 mg/dl (74-100); HDL Cholesterol 34 mg/dl (40-60); Potassium 4.9 mmoL/L (3.5-5.1); Sodium 140 mmol/L (136-145); Total Protein,Serum 7.3 g/dl (6.3-8.2); Triglycerides 123 mg/dl (30-150); VLDL Cholesterol 25 mg/dL (0-40)
[2025-02-03 18:34] LABS: Direct LDL Cholesterol 48.65 mg/dL (100-129)
[2025-02-03 18:46] LABS: Prostate Specific Ag Screen 0.4 ng/ml (0.0-4.0)
== END 2025-02-03 23:59 | disposition home or self-care (01) ==
LOC: LAB.DROPOF 02-04 11:24
PROVIDERS: PCP Family Medicine; Visit Provider Family Medicine
DX: E78.2 Mixed hyperlipidemia (principal); I10 Essential (primary) hypertension; Z13.1 Encounter for screening for diabetes mellitus
CPT/HCPCS: 80053; 80061; G0103

== ENCOUNTER 2025-04-08 09:06 | Outpatient (CLI) | payer BC, SELFPAY ==
--- NOTE | 2025-04-08 09:30 | CA_ITS ---
APPROVED REPORT EXAM: Comprehensive 2D, Doppler, and color-flow Echocardiogram Production Troubleshooter: VILLA Patten, RVS Ht: 5 ft 7 in Wt: 230lbs BSA: 2.15 BP: 128/83 mmHg Indications: HFrEF M-Mode Dimensions RVDd 1.79 cm (0.9-2.6) LA Diam 4.26 cm (1.9-4.0) LVDd 4.97 cm (3.5-5.7) LVDs 4.03 cm (3.5-5.7) IVSd 0.67 cm (0.6-1.1) PWd 0.67 cm (0.6-1.1) EF (Teich) 38.90% EPSs 2.01 cm FS 18.90% EDV (Teich) 116.60 mL TAPSE 2.20 (<1.7) ESV (Teich) 71.30 mL LV Diastology E Decel Time 233 (160-240 msec) E/A Ratio 0.7 Mitral Valve MV E Max Jacob. 47.0 (40-130 cm/s) MV A Velocity 70.0 (40-130 cm/s) E/A Ratio 0.67 MV Mean Gr. 1.10 (<2mmHg) MV PHT 68.0 ms Left Ventricle The left ventricle is normal size. Left ventricular systolic function is mildly decreased. There is increased LV wall thickness. There is mild reduction in global LV systolic function. Grade 1 diastolic dysfunction is present. LVEF is 45%. Right Ventricle The right ventricle is normal size. The right ventricular systolic function is low-normal. There is a device lead present in the right ventricle. Atria The left atrium size is normal. The right atrium size is normal. Aortic Valve The aortic valve is mildly thickened. There is no aortic valvular stenosis. Trace aortic regurgitation. Mitral Valve The mitral valve is normal in structure. No evidence of mitral valve stenosis. Trace mitral regurgitation. Tricuspid Valve Tricuspid valve is grossly normal in structure and function. Trace tricuspid regurgitation. There is insufficient TR jet to estimate RVSP. Pulmonic Valve The pulmonary valve is normal in structure. Trace pulmonic regurgitation. Great Vessels The aortic root is normal in size. IVC is normal in size and collapses >50% with inspiration. Pericardium There is no pericardial effusion. Other Information Study Quality: Fair Conclusion Mildly reduced LV systolic function (LVEF 45%). Normal RV size with low-normal RV function. No significant valvular stenosis or regurgitation. Compared to prior study from 05/20/2024, the LVEF has improved, but remains mildly reduced. Electronically signed by : Angela Palacios MD 04/17/2025 19:38:22
== END 2025-04-08 23:59 | disposition home or self-care (01) ==
LOC: RT 09:07
PROVIDERS: PCP Family Medicine; Visit Provider Physician Assistant
DX: I50.23 Acute on chronic systolic (congestive) heart failure (principal); I25.10 Atherosclerotic heart disease of native coronary artery without angina pectoris; R93.1 Abnormal findings on diagnostic imaging of heart and coronary circulation
CPT/HCPCS: 93306

== ENCOUNTER 2025-08-02 09:32 | Outpatient (CLI) | payer BC, SELFPAY ==
[2025-08-02 15:11] LABS: Anion Gap 18.0 mEq/L (5-15); Blood Urea Nitrogen 22 mg/dl (9-20); Calcium 9.5 mg/dl (8.4-10.2); Carbon Dioxide 21 mmol/L (22.0-30.0); Chloride 102 mmol/L (98-107); Creatinine,Serum 1.50 mg/dl (0.66-1.25); Estimated Glomerular Filt Rate 47 ml/min (>60); GFR (African American) 57 ML/MIN (>60); Glucose 94 mg/dl (74-100); Potassium 5.0 mmoL/L (3.5-5.1); Sodium 136 mmol/L (136-145)
--- OUTSIDE RECORDS SUMMARY | 2025-08-03 12:18 | XMS_ITS | Clinical Summary ---
Author Organization [facility] Address [address] [place] [address] Care Team Providers Care Supervisor Assembly Name Role Phone Damon Joaquin MD Primary Care Provider [phone] Allergies Active Allergy Reactions Criticality Noted Date Comments Lisinopril Rash High 08/09/2024 Medications Jardiance 10 MG tablet tablet Take 1 tablet by mouth Daily. Active furosemide (LASIX) 20 MG tablet Take 1 tablet by mouth Daily. 08/18/2024 Active rosuvastatin (CRESTOR) 40 MG tablet 1 tablet. 08/09/2024 Active Entresto 49-51 MG tablet Take 1 tablet by mouth 2 (Two) Times a Day. Active spironolactone (ALDACTONE) 25 MG tablet Take 1 tablet by mouth Daily. Active Active Problems Problem Noted Date Diagnosed Date Acute left systolic heart failure 09/20/2024 AICD (automatic cardioverter/defibrillator) pres ent 09/20/2024 CAD in [place] artery 09/20/2024 Cardiomyopathy 09/20/2024 Chronic kidney disease 09/20/2024 Hyperlipidemia 09/20/2024 HTN (hypertension) 09/20/2024 Type 2 diabetes mellitus with obesity 09/20/2024 Overview (08/03/2025): UPDATING PER 2024 REGULATORY 2024 LOAD S/P total knee arthroplasty, right 09/16/2023 Degenerative arthritis of right knee 06/24/2023 S/P TKR (total knee replacement), left Obesity (BMI 30-39.9) 06/03/2023 Primary osteoarthritis of left knee 02/17/2023 Immunizations Immunization Administration Dates Next Due COVID-19 (MODERNA) 1st,2nd,3 rd Dose Monovalent 07/04/2021,11/29/2020,10/30/2020 Social History Tobacco Use Types Packs/Day Years Used Date Smoking Tobacco: Former Cigarettes 0 05/03/1995 - 11/03/1997 Cigars Quit: 1989 Passive Smoke Exposure: Current Smokeless Tobacco: Never Tobacco Cessation:Counseling Given: Not Answered Comments:n/a Alcohol Use Standard Drinks/Week Comments Not Currently 2 (1 standard drink = 0.6 oz pur e alcohol) AUDIT-C Answer Date Recorded Q1: How often do you have a drink containing alcohol? Never 06/03/2023 Q2: How many drinks containi ng alcohol do you have on a typical day when you are drinking? Patient does not drink Q3: How often do you have si x or more drinks on one occasion? Never 06/03/2023 Abuse Screen Answer Date Recorded Feels Unsafe at Home or Work/School no 09/16/2023 Feels Threatened by Someone no 09/03 Does Anyone Try to Keep You From Having Contact with Others or Doing Things Outside Your Home? no 09/16/2023 Physical Signs of Abuse Present no 09/16/2023 Housing Stability Answer Date Recorded Current Living Arrangements home 09/03 Potentially Unsafe Housing Conditions Not on elena e 09/16/2023 Disabilities Answer Date Recorded Difficulty Concentrating, Remembering or Making Decisions no 09/16/2023 Difficulty Managing Errands Independently no 09/16/2023 Education Answer Date Recorded Help with school or training? Not on file Preferred Language Polish 09/02/2023 Sex and Gender Information Value Date Recorded Sex Assigned at Not on file Legal Sex Male 10:24 AM EDT Gender Identity Not on file Sexual Orientation Not on file Last Filed Vital Signs Vital Sign Reading Time Taken Comments Blood Pressure 128/91 09/16/2023 5:00 PM EST Pulse 62 09/16/2023 5:00 PM EST Temperature 36.3 C (97.3 F) 10/06/2023 2:09 PM EST Respiratory Rate 16 09/16/2023 5:00 PM EST Oxygen Saturation 99% 09/16/2023 5:00 PM EST Inhaled Oxygen Concentration - - Weight 112 kg (247 lb 6.4 oz) 09/20/2024 2:45 PM EST Height 165.1 cm (5' 5 ) 09/20/2024 2:45 PM EST Body Mass Index 41.17 09/20/2024 2:45 PM EST Plan of Treatment Health Maintenance Due Date Last Done Comments LIPID PANEL 1962 DIABETIC EYE EXAM 1972 DIABETIC FOOT EXAM 1972 URINE MICROALBUMIN-CREATININE RATIO (uACR) 1972 Pneumococcal Vaccine 50+ (1 of 2 - PCV) 1981 COLOGUARD 2007 COLON CANCER SCREENING 5 YEA R SIGMOIDOSCOPY 2007 COLONOSCOPY 2007 COL[address]AL CANCER SCREENING 2007 CT COLONOGRAPHY 2007 FECAL OCCULT BLOOD TEST 2007 FIT Testing (1 year) 2007 TDAP/TD VACCINES (2 - Tdap) 04/02/2010 04/02/2000 ZOSTER VACCINE (1 of 2) 2012 ANNUAL PHYSICAL 02/17/2023 HEPATITIS C SCREENING 02/17/2023 HEMOGLOBIN A1C 03/02/2024 09/02/2023, 05/20/2023 INFLUENZA VACCINE 06/03/2025 Medical Devices Implanted Type Area Bike Shop Manager Device Identifier Shelf Expiration Date Model / Serial / Lot Comp Fem Legion Oxinium Cr Nrw Sz6n Lt - [id number] Implanted:Qty : 1 on 06/03/2023 by Damon Gay MD at [facility] Implant Left: Knee NGUYỄN AND NEPHEW 02/02/2033 [id number] / / [id number] Patella Resrf Gen2 7.5x32mm - [id number] Implanted:Qty : 1 on 06/03/2023 by Damon Gay MD at [facility] Implant Left: Knee NGUYỄN AND NEPHEW [id number] 02/16/2033 [id number] / / [id number] Base Tib/Kn Gen2 Nonpor Ti Sz4 Lt - [id number] Implanted:Qty : 1 on 06/03/2023 by Damon Gay MD at [facility] Implant Left: Knee NGUYỄN AND NEPHEW [id number] 11/02/2032 [id number] / / [id number] [facility] Bone Palacos R Hi/Visc 1x40 - [id number] Implanted:Qty : 1 on 06/03/2023 by Damon Gay MD at [facility] Implant Left: Knee [facility] [id number] / / [facility] Bone Palacos R Hi/Visc 1x40 - [id number] Implanted:Qty : 1 on 06/03/2023 by Damon Gay MD at [facility] Implant Left: Knee [facility] [id number] / / Dev Contrl Tiss Stratafix Spiral Mncryl Ud 3/0 Pls 60cm - [id number] Implanted:Qty : 1 on 06/03/2023 by Damon Gay MD at [facility] Implant Left: Knee [employer] DIV OF J AND J [id number] 01/31/2025 [id number] / / [id number] Dev Contrl Tiss Stratafix Symm Pds Plus Kellee Ct-1 45cm - [id number] Implanted:Qty : 1 on 06/03/2023 by Damon Gay MD at [facility] Implant Left: Knee [employer] DIV OF J AND J [id number] 10/02/2024 [id number] / / [id number] Insrt Art/Kn Legion Cr Hf Xlpe Sz3to4 11mm - [id number] Implanted:Qty : 1 on 06/03/2023 by Damon Gay MD at [facility] Implant Left: Knee NGUYỄN AND NEPHEW [id number] 07/19/2032 [id number] / / [id number] Totl Kn Dmitry Nguyễn Nephew - [id number] Implanted:Qty : 1 on 06/03/2023 by Damon Gay MD at [facility] Implant Left: Knee NGUYỄN AND NEPHEW [employer] [id number] / / [facility] Bone Palacos R Hi/Visc 1x40 - [id number] Implanted:Qty : 1 on 09/16/2023 by Damon Gay MD at [facility] Implant Right: Knee [facility] [id number] 02/01/2028 [id number] / / [id number] Cmt Bone Palacos R Hi/Visc 1x40 - [id number] Implanted:Qty : 1 on 09/16/2023 by Damon Gay MD at [facility] Implant Right: Knee [employer] [id number] 02/01/2028 [id number] / / [id number] Dev Contrl Tiss Stratafix Symm Pds Plus Kellee Ct-1 45cm - [id number] Implanted:Qty : 1 on 09/16/2023 by Damon Gay MD at [facility] Implant Right: Knee [employer] DIV OF J AND J 03/02/2025 [id number] / / [id number] Dev Contrl Tiss Stratafix Spiral Mncryl Ud 3/0 Pls 60cm - [id number] Implanted:Qty : 1 on 09/16/2023 by Damon Gay MD at [facility] Implant Right: Knee [employer] DIV OF AND J 07/03/2025 [id number] / / [id number] Pat Gen2 Resrf 32mm - [id number] Implanted:Qty : 1 on 09/16/2023 by Damon Gay MD at [facility] Implant Right: Knee NGUYỄN AND NEPHEW [id number] 04/24/2033 [id number] / / [id number] Comp Fem Legion Oxinium Cr Sz6 Rt - [id number] Implanted:Qty : 1 on 09/16/2023 by Damon Gay MD at [facility] Implant Right: Knee NGUYỄN AND NEPHEW [id number] 01/10/2033 [id number] / / [id number] Base Tib/Kn Gen2 Nonpor Ti Sz4 Rt - [id number] Implanted:Qty : 1 on 09/16/2023 by Damon Gay MD at [facility] Implant Right: Knee NGUYỄN AND NEPHEW [id number] 04/12/2033 [id number] / / [id number] Insrt Art/Kn Legion Cr Hf Xlpe Sz3to4 9mm - [id number] Implanted:Qty : 1 on 09/16/2023 by Damon Gay MD at [facility] Implant Right: Knee NGUYỄN AND NEPHEW [id number] 04/27/2032 [id number] / / [id number] Totl Kn Dmitry Nguyễn Nephew - [id number] Implanted:Qty : 1 on 09/16/2023 by Damon Gay MD at [facility] Implant Right: Knee NGUYỄN AND NEPHEW [employer] LSN2 / / Procedures Procedure Name Priority Date/Time Associated Diagnosis Comments HEMOGLOBIN A1C Routine 09/02/2023 10:23 AM EDT Primary osteoarthritis of right knee from Last 3 Months or Most Recently Relevant to Health Maintenance Results * Hemoglobin A1c (09/02/2023 10:23 AM EDT) Hemoglobin A1C 5.20 4.80 - 5.60 % 09/02/2023 11:14 AM EDT [facility] Blood Venipuncture / Unknown 09/02/2023 10:23 AM EDT 09/02/2023 11:00 AM EDT Narrative [facility] - 09/02/2023 11:14 AM EDT Hemoglobin A1C Ranges: Increased Risk for Diabetes 5.7% to 6.4% Diabetes >= 6.5% Diabetic Goal < 7.0% Damon Gay MD LAB BLOOD ORDERABLES Final Res ult [facility]
[address] [place] [address], from Last 3 Months or Most Recently Relevant to Health Maintenance Insurance Member Subscriber Plan / Payer (Ef fective 2021-Present) Name:Jorge Copeland All Relation to Subscriber:Self Name:Jorge Copeland All Payer ID:[id number] (NAIC) Type:Not on file Address: [facility] [id number] [place] [id number] Advance Directives * CPR (Attempt to Resuscitate) (Latest Code Status on File) Date Activated Date Inactivated Comments 09/16/2023 4:59 PM 09/16/2023 7:43 PM Question Answer Comments Code Status (Patient has no pulse and is not breathing): CPR (Attempt to Resuscitate) Medical Interventions (Patie nt has pulse or is breathing): Full Support * CPR (Attempt to Resuscitate) Date Activated Date Inactivated Comments 06/03/2023 11:19 AM 06/03/2023 5:50 PM Question Answer Comments Code Status (Patient has no pulse and is not breathing): CPR (Attempt to Resuscitate) Medical Interventions (Patie nt has pulse or is breathing): Full Support Release to patient: Routine Release Care Teams Supervisor Assembly Relationship Specialty Start Date End Date Damon Joaquin MD [address] [facility] [address] ATTN: [facility] [place] [address] PCP - General Emergency Medicine 02/03/23
--- OUTSIDE RECORDS SUMMARY | 2025-08-03 12:18 | XMS_ITS | Clinical Summary ---
Author Organization Healthcare Address [address] [place] [address] Care Team Providers Care Chain Sales Consultant Name Role Phone Unavailable Primary Care Provider Unavailabl e Family History Medical History Relation Name Comments Other cancer Father COPD Mother Diabetes Mother Hypertension Mother Relation Name Status Comments Father Mother Social History Tobacco Use Types Packs/Day Years Used Date Smoking Tobacco: Never Alcohol Use Standard Drinks/Week Comments No 0 (1 standard drink = 0.6 oz pur e alcohol) Sex and Gender Information Value Date Recorded Sex Assigned at Not on file Legal Sex Male 7:34 PM EDT Gender Identity Not on file Sexual Orientation Not on file Last Filed Vital Signs Vital Sign Reading Time Taken Comments Blood Pressure 172/121 09/17/2019 8:07 AM EST Pulse 90 09/17/2019 8:07 AM EST Temperature 36.9 C (98.5 F) 09/17/2019 8:07 AM EST Respiratory Rate - - Oxygen Saturation - - Inhaled Oxygen Concentration - - Weight 104 kg (228 lb 6.3 oz) 09/17/2019 8:07 AM EST Height 170.2 cm (5' 7 ) 09/17/2019 8:07 AM EST Body Mass Index 35.77 09/17/2019 8:07 AM EST Plan of Treatment Not on file
== END 2025-08-02 23:59 | disposition home or self-care (01) ==
LOC: LAB.DROPOF 08-03 11:04
PROVIDERS: PCP Student in an Organized Health Care Education/Training Program; Visit Provider Student in an Organized Health Care Education/Training Program
DX: N18.31 Chronic kidney disease, stage 3a (principal)
CPT/HCPCS: 80048

== ENCOUNTER 2025-09-21 09:18 | Outpatient (CLI) | payer BC, SELFPAY ==
[2025-09-21 09:47] LABS: Hematocrit 42.9 % (42.0-52.0); Hemoglobin 14.0 g/dL (14.1-18.0); Immature Granulocytes % 0.4 %; Mean Corpuscular HGB Conc 32.6 g/dL (31.8-35.4); Mean Corpuscular Hemoglobin 29.5 pg (27.0-31.2); Mean Corpuscular Volume 90.3 fl (80-94); Nucleated Red Blood Cells % 0 %; Platelet Count 226 K/mm3 (142-424); Red Blood Count 4.75 M/mm3 (4.60-6.20); Red Cell Distribution Width-SD 44.1 fL; White Blood Count 9.3 K/mm3 (4.8-10.8)
[2025-09-21 10:22] LABS: Anion Gap 9.6 mEq/L (5-15); Blood Urea Nitrogen 22 mg/dl (9-20); Calcium 9.7 mg/dl (8.4-10.2); Carbon Dioxide 26 mmol/L (22.0-30.0); Chloride 103 mmol/L (98-107); Creatinine,Serum 1.50 mg/dl (0.66-1.25); Estimated Glomerular Filt Rate 47 ml/min (>60); GFR (African American) 57 ML/MIN (>60); Glucose 91 mg/dl (74-100); Potassium 4.6 mmoL/L (3.5-5.1); Sodium 134 mmol/L (136-145)
[2025-09-21 10:37] LABS: Free T4 (Free Thyroxine) 0.88 ng/dl (0.78-2.19)
[2025-09-21 13:35] LABS: Alanine Aminotransferase 21 U/L (12-78); Albumin Level 4.5 g/dl (3.5-5.0); Alkaline Phosphatase 74 U/L (38-126); Aspartate Amino Transferase 26 U/L (17-59); Bilirubin,Direct 0.3 mg/dl (0.0-0.4); Bilirubin,Indirect 0.8 mg/dL (0.0-0.9); Bilirubin,Total 1.1 mg/dl (0.2-1.3); Bilirubin,Unconjugated 0.9 mg/dL (0.0-1.1); Cholesterol 92 mg/dl (140-200); HDL Cholesterol 34 mg/dl (40-60); Magnesium 2.2 mg/dl (1.6-2.3); Total Protein,Serum 6.8 g/dl (6.3-8.2); Triglycerides 88 mg/dl (30-150)
[2025-09-21 14:09] LABS: Thyroid Stimulating Hormone 1.52 uIU/mL (0.465-4.68)
== END 2025-09-21 23:59 | disposition home or self-care (01) ==
LOC: LAB 09:19
PROVIDERS: PCP Student in an Organized Health Care Education/Training Program; Visit Provider Physician Assistant
DX: I25.10 Atherosclerotic heart disease of native coronary artery without angina pectoris (principal); E78.5 Hyperlipidemia, unspecified; I10 Essential (primary) hypertension
CPT/HCPCS: 36415; 80048; 80061; 80076; 83735; 84439; 84443; 85025